=== PATIENT | female | born 2000 | race Caucasian/White ===

== ENCOUNTER → 2021-06-18 14:19 | Outpatient (CLI) | payer BC, SELFPAY ==
--- NOTE | ~2021-06-18 | US_ITS ---
EXAMINATION: US pelvic complete EXAM DATE: 06/18/2021 14:39 INDICATION: Abnormal uterine bleeding. TECHNIQUE: Pelvic transabdominal sonogram was performed. There are multiple grayscale and Doppler im ages available for interpretation. There is no prior study for comparison. FINDINGS: Uterus measures 7.9 x 3.7 x 4.8 cm, and is morphologically normal. Endometrial stripe luis ures 12 mm, within normal limits. There is no free pelvic fluid. Right adnexa: The ovary measures 2.5 x 1.9 x 2.1 cm and is morphologically normal. Ovarian vascular f low confirmed. Left adnexa: The ovary measures 3.2 x 2.4 x 2.9 cm and is morphologically normal. Ovarian vascular fl ow confirmed. IMPRESSION: Unremarkable pelvic ultrasound exam. Reviewed, dictated and finalized at location A.
== END ==
PROVIDERS: Visit Provider Nurse Practitioner
DX: N93.9 Abnormal uterine and vaginal bleeding, unspecified (principal)
CPT/HCPCS: 76856